=== PATIENT | female | born 1940 | race Caucasian/White ===

== ENCOUNTER → 2022-05-04 | Outpatient (CLI) | payer MEDICARE, SELFPAY ==
--- NOTE | 2022-05-04 | CYSPIN_PTH ---
PATIENT: CHARLIE SOUSA LOC: [facility] U#:[id number] AGE/SX: 82/F ROOM: RE05/04/[address]: Dr. Tessa Torres MD : 1940 BED: DIS: 05/04/2022 SPEC #: [id number] RECD: 05/04/22 15:00 STATUS: BART GARCIA #: [id number] LIS: 05/04/22 00:[address]: Tessa Torres DEPT: CYTOLOGY RECD BY: Gisela Pedraza ENTERED: 05/05/22 08:22 SP TYPE: CYSPIN FL OTHR DR: Dr. Kae Meyer MD Tissues: Urine Procedures: Pap Stain (control) Special Stain Group II Cytospin Fluid HEADER OPERATION: Not noted PRE-OP DIAGNOSIS: Gross hematuria TISSUE SUBMITTED: Urine for cytology DIAGNOSIS CYTOLOGY Urine for cytology (cytospin): Rare atypical urothelial cells (Alissa System Category III). See comment. AM:deja 05/05/2022 COMMENT The Alissa System for urine cytology diagnostic categorization was used in the evaluation of this case. Rare urothelial cells associated with acute inflammatory cells are present in the specimen. Clinical correlation is suggested. CYTOLOGY STUDY Slides are reviewed. CYTOLOGY GROSS Received is 9 ml of yellow hazy fluid labeled with the patient's name and and designated per the requisition as urine. Submitted for cytology preparation. / deja 05/04/2022 TC:? CPT: 79755
[2022-05-04 12:26] LABS: Anion Gap 4 (5-15); BUN 19 mg/dL (7-18); BUN/Creat Ratio 23.8 RATIO (10-20); Calcium,Total 9.1 mg/dL (8.5-10.1); Chloride 110 mmol/L (98-107); EST Glomerular Filtration Rate 73 mL/min (>60); Est Glom Filt Rate - Afr Amer 88 mL/min (>60); Glucose 75 mg/dL (74-106); Potassium 4.1 mmol/L (3.5-5.1); Sodium Level 143 mmol/L (136-145)
[2022-05-04 17:34] LABS: Cytology, Body Fluid / CSF SEE PATHOLOGY REPORT
== END | disposition home or self-care (01) ==
LOC: MTLAB 10:11 → LABSPEC 05-05 06:16 → MTLAB 05-05 06:17
PROVIDERS: PCP Internal Medicine; Referring Provider Urology; Visit Provider Urology
DX: R31.0 Gross hematuria (principal)
CPT/HCPCS: 36415; 80048; 88108; 88313

== ENCOUNTER → 2022-05-17 | Outpatient (CLI) | payer MEDICARE, SELFPAY ==
--- NOTE | 2022-05-17 13:56 | CT_ITS ---
STUDY: CT ABDOMEN AND PELVIS WITH AND WITHOUT CONTRAST REASON FOR EXAM: Female, 82 years old. GROSS HEMATURIA RADIATION DOSAGE (If Supplied By Facility): CTDIvol = ( 11.55 ) mGy, DLP = ( 1597.76 ) mGycm TECHNIQUE: Transaxial images were obtained from the dome of the diaphragm to the symphysis pubis without oral contrast. IV 100mL Isovue-370 was administered. Sagittal and coronal images were reconstructed. Individualized dose optimization techniques were used for this CT. COMPARISON: None. FINDINGS: Partially visualized lower chest: Lung bases unremarkable. Liver: No concerning lesions. Scattered benign cysts, largest 2.5 cm needle aspect right lobe. Gallbladder and biliary tree: Gallbladder not visible probably resected. No biliary ductal dilation. Pancreas: No pancreatic lesions or inflammation. Spleen: Normal size, no splenic lesions. Adrenal glands: Bilateral adenomas. Kidneys and ureters: No hydronephrosis or renal stones. No concerning masses. No ureteral dilation. Bowel: Normal appendix. No obstruction or inflammation of the bowel. Sigmoid colon diverticulosis, no diverticulitis. Urinary bladder: No stones. Asymmetric wall thickening, greater on the left, edematous appearing. Small amount of air in the lumen. Reproductive: Status post hysterectomy. No suspicious pelvic mass. Vascular: No abdominal aortic aneurysm. Retroperitoneal and peritoneal spaces: No ascites or free air. No retroperitoneal lesions. Osseous: No acute osseous abnormality. Prominent facet degeneration lower lumbar spine with mild degenerative anterolisthesis of L4 on L5. Abdominal and pelvic wall: No concerning findings. Any findings described in the findings sections and not included in the impression are incidental and do not require imaging follow-up. CT/CT Abd/Pelvis W/WO Contrast IMPRESSION: Asymmetric urinary bladder wall thickening, greater on the left. This has edematous appearance most suggestive of cystitis. Neoplasm possible but less likely. Consider cystoscopy. Normal kidneys and ureters. Bilateral adrenal adenomas. Sigmoid colon diverticulosis. Electronically Signed: Darrell Chen MD at 4:28 EST Reading Location ID and State: [id number] [place] Tel , Service support ,
== END | disposition home or self-care (01) ==
LOC: CT 13:49
PROVIDERS: PCP Internal Medicine; Visit Provider Urology
DX: R31.0 Gross hematuria (principal)
CPT/HCPCS: 74178; Q9967